=== PATIENT | male | born 1985 | race Caucasian/White ===

== ENCOUNTER → 2023-03-26 | Outpatient (CLI) | payer OTHER ==
--- NOTE | 2023-03-28 14:59 | MR ---
EXAMINATION TYPE: MR knee RT wo con DATE OF EXAM: 03/26/2023 COMPARISON: Outside right knee x-ray July 14, 2022 HISTORY: Right knee medial pain for 1 year. TECHNIQUE: Multiplanar, multisequence images of the knee is performed without IV contrast. FINDINGS: MEDIAL MENISCUS: Anterior and posterior horns are intact without tear. LATERAL MENISCUS: Anterior and posterior horns are intact without tear. CRUCIATE LIGAMENTS: The anterior and posterior cruciate ligaments are intact and unremarkable. COLLATERAL LIGAMENTS: The medial collateral ligament and lateral collateral ligament complex are inta ct and unremarkable. EXTENSOR MECHANISM: Visualized quadriceps and patellar tendons are intact. EFFUSION: Small size suprapatellar joint effusion. POPLITEAL CYST: No popliteal/castrejon cyst. TRICOMPARTMENT SPACES: There is mild narrowing and spurring medial tibiofemoral and lateral tibiofemo ral compartments. There is more prominent narrowing which is moderate to severe involving the inferio r aspect of the patellofemoral compartment. CARTILAGE: There is chondromalacia patella with particular most prominent cartilaginous loss along th e inferior aspect of the posterior patella. BONE MARROW SIGNAL: There is heterogeneous increased T2 signal are seen in the posterior inferior asp ect of the patella and adjacent anterior distal femur with findings most prominent along the medial a spect. OTHER: No additional significant abnormality is appreciated. IMPRESSION: 1. 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 2. No meniscal or ligamentous tear is seen. 3. Small-size suprapatellar joint effusion.
== END | disposition home or self-care (01) ==
LOC: RADMRIMAIN 18:58
PROVIDERS: ATTEND Orthopaedic Surgery
DX: M17.11 Unilateral primary osteoarthritis, right knee (principal); M25.461 Effusion, right knee